=== PATIENT | male | born 1945 | race Caucasian/White ===

== ENCOUNTER → 2017-11-22 | Outpatient (CLI) | payer MEDICARE ==
[~2017-11-22] MED LIST: AMLO1CAP8 PO; AMLO5TAB2 PO; ASPI-650 PO; CEFD300C37 PO; DIAZ2TAB3 PO; ERGO500017 PO; FLUO20CA8 PO; HYDR-3240 PO; HYDR-3341 PO; LEVO50TA64 PO; MAGN400T7 PO; MULT-738 PO; OMEP-110 PO; PYRI50TA9 PO; SODI650T PO; ZOLP-413 PO
== END | disposition home or self-care (01) ==
LOC: RAD 11:25
PROVIDERS: ATTEND Family Medicine
DX: R60.0 Localized edema (principal)

== ENCOUNTER 2019-11-26 22:48 | Inpatient (IN) | payer MEDICARE ==
[~2019-11-26] VITALS: Ht 180.3 cm; Wt 77.2 kg
[~2019-11-26 22:48] MED LIST changes: +AMLO-150 PO; -AMLO1CAP8 PO; +AMLO1CAP9 PO; -AMLO5TAB2 PO; -MAGN400T7 PO; +MAGN400T9 PO
--- NOTE | 2019-11-26 23:05 | NUR ---
patient self caths at home due to not having original bladder r/t bladder cancer. patient cath in room after arrival, tolerated well. output of 900ml of urine, yellow/cloudy. spoke with MD regarding urine, will await urine order.
[2019-11-27 00:03] LABS: INTERNATIONAL NORMALIZED RATIO 1.17 (0.93-1.1); PROTHROMBIN TIME 12.2 Seconds (9.6-11.5)
[2019-11-27 00:05] LABS: ALANINE AMINOTRANSFERASE 31 U/L (12-78); ALBUMIN 2.7 g/dL (3.4-5.0); ANION GAP 7 mmol/L (5-15); CALCIUM 8.1 mg/dL (8.5-10.1); CHLORIDE 112 mmol/L (98-107); CREATININE 2.02 mg/dL (0.7-1.3)
[2019-11-27 00:06] LABS: MICROSCOPIC AUTO
[2019-11-27 00:07] LABS: ALKALINE PHOSPHATASE 89 U/L (45-117); BILIRUBIN,TOTAL 0.6 mg/dL (0.2-1.0); CULTURE INDICATED? YES; TOTAL PROTEIN 6.7 g/dL (6.4-8.2)
[2019-11-27 00:30] LABS: MEAN CORPUSCULAR HEMOGLOBIN 33.8 pg (27.5-34.5); MEAN CORPUSCULAR HGB CONC 33.6 g/dL (33.2-36.2); MEAN CORPUSCULAR VOLUME 100.6 fL (81-97); MEAN PLATELET VOLUME 6.4 fL (7.4-10.4); PLATELET COUNT 187 x10^3/uL (130-400); RED CELL DISTRIBUTION WIDTH 13.7 % (9.4-14.8)
[2019-11-27] MEDS ORDERED: ONDANSETRON 2MG/ML, 2ML IVPush ONE (00:30)
[2019-11-27] MEDS ORDERED: ONDANSETRON 2MG/ML, 2ML ONE (00:35)
[2019-11-27] MEDS ORDERED: MORPHINE SULFATE 4 MG/ML, 1ML ONE ×3 (00:35→06:25)
[2019-11-27 00:37] LABS: BASOPHILS # (AUTO) 0.02 x10^3/uL (0-0.1); BASOPHILS % (AUTO) 0 % (0-1); EOSINOPHILS # (AUTO) 0.02 x10^3/uL (0-0.4); EOSINOPHILS % (AUTO) 0 % (1-7); LYMPHOCYTES # (AUTO) 0.92 x10^3/uL (1-3.4); LYMPHOCYTES % (AUTO) 17 % (22-44); MD SCAN; MONOCYTES # (AUTO) 0.45 x10^3/uL (0.2-0.8); MONOCYTES % (AUTO) 8 % (2-9); NEUTROPHILS # (AUTO) 4.11 x10^3/uL (1.8-6.8); NEUTROPHILS % (AUTO) 75 % (42-75)
[2019-11-27] MEDS: MORPHINE SULFATE 4 MG/ML, 1ML IVPush PRN ×2 (00:38→04:40)
[2019-11-27] MEDS ORDERED: CEFTRIAXONE PMX 1GM/50ML 50 ML IV ONE (02:30)
[2019-11-27] MEDS: SODIUM CHLORIDE 0.9% 1,000 ML IV SCH ×6 (02:30→20:31)
[2019-11-27] MEDS ORDERED: CEFTRIAXONE PMX 1GM/50ML 50 ML ONE (03:24)
[2019-11-27] MEDS ORDERED: ONDANSETRON 2MG/ML, 2ML IVPush PRN (03:30)
[2019-11-27] MEDS ORDERED: hydrALAzine 20 MG/ML, 1ML IVPush PRN (03:30)
[2019-11-27] MEDS ORDERED: ONDANSETRON ODT 4 MG PO PRN (03:30)
[2019-11-27] MEDS ORDERED: ACETAMINOPHEN 325 MG TABLET PO PRN (03:30)
[2019-11-27] MEDS ORDERED: CYCLOBENZAPRINE 10 MG TABLET PO PRN (03:30)
[2019-11-27] MEDS ORDERED: POLYETHYLENE GLYCOL 17 GM PACKET PO PRN (03:30)
[2019-11-27] MEDS ORDERED: BISACODYL 10 MG SUPP PR PRN (03:30)
[2019-11-27] MEDS ORDERED: PROMETHAZINE 25 MG/ML, 1ML IM PRN (03:30)
--- NOTE | 2019-11-27 03:51 | NUR ---
patient was cath per patient's at home regimen; tolerated well. aproximately 100ml of urine out, patient stated that this is normal for him at this time of the morning.
--- NOTE | 2019-11-27 04:56 | NUR ---
report given to oncoming RN
--- NOTE | 2019-11-27 04:57 | NUR ---
REPORT RECEIVED FROM KIRIT CONKLIN
--- NOTE | 2019-11-27 05:25 | NUR ---
PT MOVED TO HOSPITAL BED.
[2019-11-27 05:29] LABS: FREE T4 (FREE THYROXINE) 0.86 ng/dL (0.76-1.46)
[2019-11-27] MEDS ORDERED: METOPROLOL TARTRATE 25 MG TABLET ONE (06:24)
[2019-11-27] MEDS: ERTAPENEM 1 GM in SODIUM CHLORIDE 0.9% 50 ML IV SCH (06:30)
[2019-11-27] MEDS: SODIUM BICARBONATE 650 MG TABLET PO SCH ×4 (06:31→20:30)
[2019-11-27] MEDS: METOPROLOL TARTRATE 25 MG TABLET PO SCH ×2 (06:31→17:48)
[2019-11-27] MEDS: LEVOTHYROXINE 75 MCG TABLET PO SCH (06:31)
[2019-11-27] MEDS: morphine SULFATE 10 MG/ML, 1ML IVPush PRN ×4 (06:32→20:30)
--- NOTE | 2019-11-27 06:32 | NUR ---
PT MEDICATED PER EMAR. 5 RIGHTS ADDRESSED. PT C/O SEVERE PAIN TO RIBS AND HIP. MEDICATED WITH MORPHINE FOR PAIN
[2019-11-27] MEDS ORDERED: SENNA/DOCUSATE TABLET ONE (08:36)
[2019-11-27] MEDS: SENNA/DOCUSATE TABLET PO SCH ×2 (09:00→09:35)
--- NOTE | 2019-11-27 09:00 | NUR ---
PT GIVEN BREAKFAST TRAY, ECHO COMPLETED AT [facility]. VSS, NAD NOTED
[2019-11-27] MEDS: FLUOXETINE HCL 20 MG CAPSULE PO SCH (09:35)
[2019-11-27] MEDS ORDERED: METO-93 PO (09:44)
[2019-11-27] MEDS ORDERED: RIVA15TA PO (09:44)
--- NOTE | 2019-11-27 11:20 | NUR ---
PT STRAIGHT CATHED PER ADMITTING PROVIDER ORDER, VSS, NAD NOTED
[2019-11-27] MEDS ORDERED: morphine SULFATE 10 MG/ML, 1ML ONE (12:32)
--- NOTE | 2019-11-27 14:32 | NUR ---
BREAK RN: NOON MEAL TRAY DELIVERED. PT DECLINED AND ASKED THAT IT BE TAKEN AWAY. I NOTICED THAT HIS BREAKFAST TRAY WAS ALSO IN THE ROOM AND HAD NOT BEEN TOUCHED. PT STATED THAT HE WAS NOT HUNGRY. PT VSS, NOTED. PAIN 5/10. IVF INFUSING W/O DIFFICULTY RIGHT AC PIV. PT WITH DEPENDS ON, I REMOVED THESE AND PLACED A DRAW SHEET AND CHUX UNDER PATIENT. PT C/O OF INCREASED PAIN MAINLY IN RIGHT THIGH AREA WITH ANY MOVEMENT. RADIOLOGY RPTS WERE REVIEWD BY THIS RN PRIOR TO ATTEMPTING ANY MOVEMENT WITH PT. PT VERBALIZES THAT HE NEEDS TO HAVE HIS BLADDER DRAINED VIA CATHETER. PT SELF CATHS AT HOME QID 2/2 TO NEOBLADDER SURGERY.
--- NOTE | 2019-11-27 14:36 | NUR ---
CALL LIGHT W/I REACH. WILL VERIFY ORDER FOR STRAIGHT CATH, PT AWARE.
--- NOTE | 2019-11-27 15:29 | NUR ---
REPORT CALLED TO RECIEVING RN, AWAITING TRANSPORT. CALLED TO UPDATE
[2019-11-27 17:35] VITALS: BP 155/74
[2019-11-27] MEDS: RIVAROXABAN 15 MG TABLET PO SCH (17:48)
[2019-11-27] MEDS: OXYcodone IR 5MG TABLET PO PRN (18:26)
[2019-11-27 18:27] VITALS: BP 155/74
[2019-11-27 21:27] VITALS: BP 132/83
[2019-11-27] MEDS ORDERED: MAGNESIUM SULFATE PMX 4GM/100M 100 ML IVPB ONE (23:45)
[2019-11-28] VITALS (7 sets, daily range): BP systolic 123–148; BP diastolic 53–69
[2019-11-28] MEDS: OXYcodone IR 5MG TABLET PO PRN ×2 (01:59→16:22)
[2019-11-28] MEDS: SODIUM CHLORIDE 0.9% 1,000 ML IV SCH ×3 (02:00→13:51)
[2019-11-28] MEDS: ERTAPENEM 1 GM in SODIUM CHLORIDE 0.9% 50 ML IV SCH (03:34)
[2019-11-28] MEDS: METOPROLOL TARTRATE 25 MG TABLET PO SCH ×2 (06:21→17:55)
[2019-11-28] MEDS: LEVOTHYROXINE 75 MCG TABLET PO SCH (06:21)
[2019-11-28] MEDS: morphine SULFATE 10 MG/ML, 1ML IVPush PRN ×2 (06:22→09:48)
[2019-11-28 06:43] LABS: ALANINE AMINOTRANSFERASE 21 U/L (12-78); ALBUMIN 2.2 g/dL (3.4-5.0); ANION GAP 7 mmol/L (5-15); CALCIUM 7.5 mg/dL (8.5-10.1); CHLORIDE 114 mmol/L (98-107); CREATININE 1.79 mg/dL (0.7-1.3)
[2019-11-28 06:49] LABS: ALKALINE PHOSPHATASE 65 U/L (45-117); BILIRUBIN,TOTAL 0.5 mg/dL (0.2-1.0); CHOL/HDL RATIO 1.8; CHOLESTEROL, TOTAL 120 mg/dL (140-239); HDL CHOL % 57 % (26-37); HDL CHOLESTEROL (DIRECT) 68 mg/dL (40-60); LDL CHOLESTEROL,CALCULATED 34 mg/dL (54-169); LDL/HDL RATIO 0.5 (0.5-3.0); TOTAL PROTEIN 5.7 g/dL (6.4-8.2); TRIGLYCERIDES 92 mg/dL (50-200); VLDL CHOLESTEROL 18 mg/dL (0-25)
[2019-11-28 07:43] LABS: BASOPHILS # (AUTO) 0.01 x10^3/uL (0-0.1); BASOPHILS % (AUTO) 0 % (0-1); EOSINOPHILS % (AUTO) 2 % (1-7); LYMPHOCYTES % (AUTO) 19 % (22-44); MD SCAN; MEAN CORPUSCULAR HEMOGLOBIN 34.2 pg (27.5-34.5); MEAN CORPUSCULAR HGB CONC 33.6 g/dL (33.2-36.2); MEAN CORPUSCULAR VOLUME 101.9 fL (81-97); MEAN PLATELET VOLUME 6.9 fL (7.4-10.4); MONOCYTES # (AUTO) 0.32 x10^3/uL (0.2-0.8); MONOCYTES % (AUTO) 8 % (2-9); NEUTROPHILS % (AUTO) 72 % (42-75); PLATELET COUNT 107 x10^3/uL (130-400); RED CELL DISTRIBUTION WIDTH 14.2 % (9.4-14.8)
[2019-11-28] MEDS: SENNA/DOCUSATE TABLET PO SCH (09:00)
[2019-11-28] MEDS: SODIUM BICARBONATE 650 MG TABLET PO SCH ×3 (09:48→21:02)
[2019-11-28] MEDS: FLUOXETINE HCL 20 MG CAPSULE PO SCH (09:48)
[2019-11-28] MEDS: RIVAROXABAN 15 MG TABLET PO SCH (17:54)
[2019-11-29] MEDS: morphine SULFATE 10 MG/ML, 1ML IVPush PRN (01:29)
[2019-11-29 01:59] VITALS: BP 116/63
[2019-11-29] MEDS: ERTAPENEM 1 GM in SODIUM CHLORIDE 0.9% 50 ML IV SCH (03:31)
[2019-11-29] MEDS: METOPROLOL TARTRATE 25 MG TABLET PO SCH ×2 (05:24→17:24)
[2019-11-29] MEDS: LEVOTHYROXINE 75 MCG TABLET PO SCH (05:24)
[2019-11-29 05:57] LABS: ANION GAP 8 mmol/L (5-15); CALCIUM 7.6 mg/dL (8.5-10.1); CHLORIDE 115 mmol/L (98-107); CREATININE 1.93 mg/dL (0.7-1.3)
[2019-11-29 06:31] LABS: MEAN CORPUSCULAR HEMOGLOBIN 34.3 pg (27.5-34.5); MEAN CORPUSCULAR VOLUME 100.8 fL (81-97); MEAN PLATELET VOLUME 6.5 fL (7.4-10.4); PLATELET COUNT 154 x10^3/uL (130-400); RED BLOOD COUNT 2.43 x10^6/uL (4.38-5.82); RED CELL DISTRIBUTION WIDTH 13.5 % (9.4-14.8)
[2019-11-29 06:48] LABS: MD SCAN
[2019-11-29 06:49] LABS: BASOPHILS # (AUTO) 0.01 x10^3/uL (0-0.1); BASOPHILS % (AUTO) 0 % (0-1); EOSINOPHILS # (AUTO) 0.06 x10^3/uL (0-0.4); EOSINOPHILS % (AUTO) 2 % (1-7); LYMPHOCYTES # (AUTO) 0.78 x10^3/uL (1-3.4); LYMPHOCYTES % (AUTO) 21 % (22-44); MONOCYTES # (AUTO) 0.36 x10^3/uL (0.2-0.8); MONOCYTES % (AUTO) 10 % (2-9); NEUTROPHILS # (AUTO) 2.47 x10^3/uL (1.8-6.8); NEUTROPHILS % (AUTO) 67 % (42-75)
[2019-11-29 08:10] VITALS: BP 148/73
[2019-11-29] MEDS: SENNA/DOCUSATE TABLET PO SCH (09:39)
[2019-11-29] MEDS: SODIUM BICARBONATE 650 MG TABLET PO SCH ×3 (09:39→20:50)
[2019-11-29] MEDS: FLUOXETINE HCL 20 MG CAPSULE PO SCH (09:39)
[2019-11-29] MEDS ORDERED: PHARMACY MAY ADJ FOR RENAL FX MC PRN (11:30)
[2019-11-29 14:10] VITALS: BP 131/62
[2019-11-29] MEDS: RIVAROXABAN 15 MG TABLET PO SCH (16:30)
[2019-11-29 17:15] VITALS: BP 163/73
[2019-11-29] MEDS: HALOPERIDOL 5 MG/ML IM PRN (19:41)
[2019-11-29 20:51] VITALS: BP 151/74
[2019-11-30 01:38] VITALS: BP 152/76
[2019-11-30] MEDS: ERTAPENEM 1 GM in SODIUM CHLORIDE 0.9% 50 ML IV SCH (04:03)
[2019-11-30 04:23] LABS: ALBUMIN 2.4 g/dL (3.4-5.0); ANION GAP 8 mmol/L (5-15); CALCIUM 8.6 mg/dL (8.5-10.1); CHLORIDE 113 mmol/L (98-107)
[2019-11-30 04:26] LABS: ALANINE AMINOTRANSFERASE 16 U/L (12-78); ALKALINE PHOSPHATASE 64 U/L (45-117); BILIRUBIN,TOTAL 0.8 mg/dL (0.2-1.0); CREATININE 2.21 mg/dL (0.7-1.3); TOTAL PROTEIN 6.3 g/dL (6.4-8.2)
[2019-11-30 05:30] LABS: MEAN CORPUSCULAR HEMOGLOBIN 33.8 pg (27.5-34.5); MEAN CORPUSCULAR HGB CONC 33.3 g/dL (33.2-36.2); MEAN CORPUSCULAR VOLUME 101.5 fL (81-97); MEAN PLATELET VOLUME 6.4 fL (7.4-10.4); PLATELET COUNT 192 x10^3/uL (130-400); RED BLOOD COUNT 2.54 x10^6/uL (4.38-5.82)
[2019-11-30 05:41] VITALS: BP 168/74
[2019-11-30] MEDS: METOPROLOL TARTRATE 25 MG TABLET PO SCH ×2 (05:46→17:31)
[2019-11-30] MEDS: LEVOTHYROXINE 75 MCG TABLET PO SCH (05:47)
[2019-11-30] MEDS: HALOPERIDOL 5 MG/ML IM PRN (05:48)
[2019-11-30 06:15] LABS: BASOPHILS # (AUTO) 0.01 x10^3/uL (0-0.1); BASOPHILS % (AUTO) 0 % (0-1); EOSINOPHILS # (AUTO) 0.01 x10^3/uL (0-0.4); EOSINOPHILS % (AUTO) 0 % (1-7); LYMPHOCYTES # (AUTO) 0.62 x10^3/uL (1-3.4); LYMPHOCYTES % (AUTO) 13 % (22-44); MD SCAN; MONOCYTES # (AUTO) 0.56 x10^3/uL (0.2-0.8); MONOCYTES % (AUTO) 12 % (2-9); NEUTROPHILS # (AUTO) 3.46 x10^3/uL (1.8-6.8); NEUTROPHILS % (AUTO) 74 % (42-75)
[2019-11-30 08:00] VITALS: BP 148/82
[2019-11-30] MEDS: FLUOXETINE HCL 20 MG CAPSULE PO SCH (09:53)
[2019-11-30] MEDS: SODIUM BICARBONATE 650 MG TABLET PO SCH ×2 (09:53→17:29)
[2019-11-30] MEDS: SENNA/DOCUSATE TABLET PO SCH (11:00)
[2019-11-30] MEDS: SODIUM CHLORIDE 0.9% 1,000 ML IV SCH ×2 (14:12→23:39)
[2019-11-30 15:32] VITALS: BP 166/87
[2019-11-30] MEDS: RIVAROXABAN 15 MG TABLET PO SCH (17:29)
[2019-11-30] MEDS ORDERED: PHARMACY MAY ADJ FOR RENAL FX MC PRN (18:30)
[2019-11-30 19:14] VITALS: BP 142/82
[2019-11-30] MEDS ORDERED: LIDOCAINE GEL 2%, 5ML ONE (22:25)
[2019-11-30] MEDS ORDERED: BENZOCAINE 20% SPRAY 0.5ML ONE (22:25)
[2019-11-30] MEDS ORDERED: OMNIPAQUE 350 MG/ML, 50 ML BOTTLE ONE (23:09)
[2019-11-30] MEDS: METOPROLOL 1 MG/ML, 5ML IVPush SCH (23:39)
[2019-11-30] MEDS: PIPERACILLIN/TAZO/PMX 2.25GM 50 ML IV SCH (23:39)
[2019-12-01 00:39] VITALS: BP 145/84
[2019-12-01] MEDS: SODIUM CHLORIDE 0.9% 1,000 ML IV SCH ×2 (05:25→12:22)
[2019-12-01] MEDS: PIPERACILLIN/TAZO/PMX 2.25GM 50 ML IV SCH ×4 (05:25→23:16)
[2019-12-01] MEDS: METOPROLOL 1 MG/ML, 5ML IVPush SCH ×4 (05:26→23:16)
[2019-12-01 05:38] VITALS: BP 167/74
[2019-12-01 05:48] LABS: ALANINE AMINOTRANSFERASE 18 U/L (12-78); ALBUMIN 2.4 g/dL (3.4-5.0); ANION GAP 12 mmol/L (5-15); CALCIUM 8.6 mg/dL (8.5-10.1); CHLORIDE 116 mmol/L (98-107); CREATININE 2.79 mg/dL (0.7-1.3)
[2019-12-01 05:50] LABS: ALKALINE PHOSPHATASE 60 U/L (45-117); BILIRUBIN,TOTAL 0.8 mg/dL (0.2-1.0); TOTAL PROTEIN 6.8 g/dL (6.4-8.2)
[2019-12-01 06:15] LABS: MEAN CORPUSCULAR HEMOGLOBIN 33.7 pg (27.5-34.5); MEAN CORPUSCULAR HGB CONC 33.3 g/dL (33.2-36.2); MEAN CORPUSCULAR VOLUME 101.2 fL (81-97); MEAN PLATELET VOLUME 6.6 fL (7.4-10.4); PLATELET COUNT 233 x10^3/uL (130-400); RED BLOOD COUNT 2.49 x10^6/uL (4.38-5.82); RED CELL DISTRIBUTION WIDTH 13.8 % (9.4-14.8)
[2019-12-01 06:44] LABS: BASOPHILS # (AUTO) 0.01 x10^3/uL (0-0.1); BASOPHILS % (AUTO) 0 % (0-1); EOSINOPHILS # (AUTO) 0.01 x10^3/uL (0-0.4); EOSINOPHILS % (AUTO) 0 % (1-7); LYMPHOCYTES # (AUTO) 0.59 x10^3/uL (1-3.4); LYMPHOCYTES % (AUTO) 10 % (22-44); MD SCAN; MONOCYTES # (AUTO) 0.79 x10^3/uL (0.2-0.8); MONOCYTES % (AUTO) 13 % (2-9); NEUTROPHILS # (AUTO) 4.72 x10^3/uL (1.8-6.8); NEUTROPHILS % (AUTO) 77 % (42-75)
[2019-12-01 08:16] VITALS: BP 129/65
[2019-12-01] MEDS ORDERED: LEVOTHYROXINE 100 MCG INJ IVPush SCH (09:00)
[2019-12-01 12:18] VITALS: BP 124/81
[2019-12-01] MEDS ORDERED: FUROSEMIDE 20 MG/2 ML IV ONE (19:00)
[2019-12-01 19:07] VITALS: BP 155/84
[2019-12-02 00:30] VITALS: BP 158/87
[2019-12-02] MEDS ORDERED: SODIUM CHLORIDE 0.9% 1,000 ML IV SCH (14:00)
== END 2019-12-02 02:55 | disposition expired | DRG 183 ==
LOC: ED 11-27 00:22 → EDIP 11-27 02:47 → 4WST 11-27 16:46 → 4EST 11-29 21:10 → 4WST 11-30 01:26
PROVIDERS: ADMIT Internal Medicine; ATTEND Family Medicine
PROC: 0T9B70Z Drainage of Bladder with Drainage Device, Via Natural or Artificial Opening (ICD-10-PCS; principal; 2019-11-26)
PROC: 0D9670Z Drainage of Stomach with Drainage Device, Via Natural or Artificial Opening (ICD-10-PCS; 2019-11-30)
DX: S22.42XA Multiple fractures of ribs, left side, initial encounter for closed fracture (principal); S32.402A Unspecified fracture of left acetabulum, initial encounter for closed fracture; G93.41 Metabolic encephalopathy; J81.0 Acute pulmonary edema; S32.592A Other specified fracture of left pubis, initial encounter for closed fracture; N39.0 Urinary tract infection, site not specified; N18.4 Chronic kidney disease, stage 4 (severe); D68.59 Other primary thrombophilia; F10.239 Alcohol dependence with withdrawal, unspecified; I48.20 Chronic atrial fibrillation, unspecified; K56.699 Other intestinal obstruction unspecified as to partial versus complete obstruction; M47.812 Spondylosis without myelopathy or radiculopathy, cervical region; I48.91 Unspecified atrial fibrillation; I12.9 Hypertensive chronic kidney disease with stage 1 through stage 4 chronic kidney disease, or unspecified chronic kidney disease; D63.8 Anemia in other chronic diseases classified elsewhere; B96.20 Unspecified Escherichia coli [E. coli] as the cause of diseases classified elsewhere; E03.9 Hypothyroidism, unspecified; E88.09 Other disorders of plasma-protein metabolism, not elsewhere classified; F41.9 Anxiety disorder, unspecified; Z82.49 Family history of ischemic heart disease and other diseases of the circulatory system; Z66 Do not resuscitate; Z85.46 Personal history of malignant neoplasm of prostate; Z85.51 Personal history of malignant neoplasm of bladder; Z90.79 Acquired absence of other genital organ(s); Z87.891 Personal history of nicotine dependence; R55 Syncope and collapse; W18.39XA Other fall on same level, initial encounter; Y93.89 Activity, other specified; Y92.098 Other place in other non-institutional residence as the place of occurrence of the external cause; Y99.8 Other external cause status; Z90.49 Acquired absence of other specified parts of digestive tract; Z90.6 Acquired absence of other parts of urinary tract; Z96.641 Presence of right artificial hip joint; R25.1 Tremor, unspecified
CPT/HCPCS: 36415; 70450; 71045; 72125; 74018; 74176; 74340; 80048; 80053; 80061; 80307; 81001; 82607; 82962; 83036; 83735; 84100; 84439; 84443; 85025; 85610; 85730; 87040; 87077; 87086; 87186; 93005; 93880; 96374; 96375; G0378; J0696; J1335; J2405; J2543; Q9967; J1630; J1940; J2270; J3475; J7030